=== PATIENT | female | born 1985 | race American Indian/Alaskan Native ===

== ENCOUNTER 2017-01-29 00:33 | Emergency (ER) | payer SELFPAY ==
--- NOTE | 2017-01-29 04:31 | Emergency Department Report ---
<YADIRA FARFAN - Last Filed: 01/29/17 05:45> ED General Adult HPI - General Chief complaint: Medical Clearance Stated complaint: DIZZINESS/CORBON MONOXIDE Time Seen by Provider: 01/29/17 04:17 Source: patient Mode of arrival: Ambulatory Limitations: No Limitations - History of Present Illness Initial comments: This is a 31-year-old female well-nourished with nontoxic or ill in appearance that presents with c/o of seeing spots for 10 mins after being in her car for an hour in the garage with the car on. Patient stated her power went out and she needed to charge her phone so she went into her garage and started her car with stayed inside the car for 1 hour. Patient stated she started to see spots in her vision for about 10 mins and ran out of the car outside. Patient stated the garage door has been closed during this incident. Patient currently denies any visional changes or seeing spots. Stated it has resolved right after she went outside. Patient stated she is here now to rule out carbon monoxide poisoning. Patient denies loss of consciousness,, chest pain,, abdominal pain, nausea, vomiting, fever, chills, headache, stiff neck, dizziness, altered mental status, or jaw pain. NKDA. Denies significant past medical history. MD Complaint: Possible carbon monoxide poisoning -: Last night (1030 pm) Radiation: non-radiation Severity scale (0 -10): 0 Improves with: none Worsens with: none Associated Symptoms: denies other symptoms. denies: confusion, chest pain, diaphoresis, fever/chills, headaches, loss of appetite, malaise, nausea/vomiting , rash, seizure, shortness of breath, syncope, weakness Treatments Prior to Arrival: none - Related Data Allergies Allergy/AdvReac Type Severity Reaction Status Date / Time No Known Allergies Allergy Unverified 01/29/17 01:32 ED Review of Systems ROS: Stated complaint: DIZZINESS/CORBON MONOXIDE Other details as noted in HPI Constitutional: denies: chills, fever Eyes: denies: eye pain, eye discharge, vision change ENT: denies: ear pain, throat pain Respiratory: denies: cough, shortness of breath, wheezing Cardiovascular: denies: chest pain, palpitations Endocrine: no symptoms reported Gastrointestinal: denies: abdominal pain, nausea, diarrhea Genitourinary: denies: urgency, dysuria, discharge Musculoskeletal: denies: back pain, joint swelling, arthralgia Skin: denies: rash, lesions Neurological: denies: headache, weakness, paresthesias Psychiatric: denies: anxiety, depression Hematological/Lymphatic: denies: easy bleeding, easy bruising ED Past Medical Hx - Past Medical History Previous Medical History?: No - Surgical History Additional Surgical History: - Social History Smoking Status: Never Smoker Substance Use Type: Alcohol ED Physical Exam - General Limitations: No Limitations General appearance: alert, in no apparent distress - Head Head exam: Present: atraumatic, normocephalic, normal inspection - Eye Eye exam: Present: normal appearance, PERRL, EOMI. Absent: scleral icterus, conjunctival injection, nystagmus, periorbital swelling, periorbital tenderness Pupils: Present: normal accommodation - ENT ENT exam: Present: normal exam, normal orophraynx, mucous membranes moist, TM's normal bilaterally, normal external ear exam - Neck Neck exam: Present: normal inspection, full ROM. Absent: tenderness, meningismus, lymphadenopathy, thyromegaly - Respiratory Respiratory exam: Present: normal lung sounds bilaterally. Absent: respiratory distress, wheezes, rales, rhonchi, stridor, chest wall tenderness, accessory muscle use, decreased breath sounds, prolonged expiratory - Cardiovascular Cardiovascular Exam: Present: regular rate, normal rhythm. Absent: systolic murmur, diastolic murmur, rubs, gallop - GI/Abdominal GI/Abdominal exam: Present: soft, normal bowel sounds. Absent: distended, tenderness, guarding, rebound, rigid, diminished bowel sounds - Rectal Rectal exam: Present: deferred - Extremities Exam Extremities exam: Present: normal inspection, full ROM, normal capillary refill. Absent: tenderness, pedal edema, joint swelling, calf tenderness - Back Exam Back exam: Present: normal inspection, full ROM. Absent: tenderness, CVA tenderness (R), CVA tenderness (L), muscle spasm, paraspinal tenderness, vertebral tenderness, rash noted - Neurological Exam Neurological exam: Present: alert, oriented X3, CN II-XII intact, normal gait, reflexes normal - Expanded Neurological Exam Expanded Patient oriented to: Present: person, place, time Speech: Present: fluid speech (normal speech) Cranial nerves: EOM's Intact: Normal, Gag Reflex: Normal, Tongue Deviation: Normal, Nystagmus: Normal, Facial Sensation: Normal, Facial Palsy with Forehead Movement: Normal, Facial Palsy without Forehead Movement: Normal Cerebellar function: Finger to Nose: Normal, Heel to Bates: Normal, Romberg: Normal Upper motor neuron: Tim Neglect: Normal, Pronator Drift: Normal, Babinski Sign : Normal, Sensory Extinction: Normal Sensory exam: Upper Extremity Light Touch: Normal, Upper Extremity Pin Prick: Normal, Upper Extremity Temperature: Normal, UE 2 Point Discrimination: Normal, Lower Extremity Light Touch: Normal, Lower Extremity Pin Prick: Normal, Lower Extremity Temperature: Normal, LE 2 Point Discrimination: Normal Motor strength exam: RUE: 5, LUE: 5, RLE: 5, LLE: 5 DTR: bicep (R): 2+, bicep (L): 2+, tricep (R): 2+, tricep (L): 2+, knee (R): 2+ , knee (L): 2+, ankle (R): 2+, ankle (L): 2+ Best Eye Response ([place]): (4) open spontaneously Best Motor Response (Shyla): (6) obeys commands Best Verbal Response ([place]): (5) oriented Shyla Total: 15 - Psychiatric Psychiatric exam: Present: normal affect, normal mood - Skin Skin exam: Present: warm, dry, intact, normal color. Absent: rash ED Course Vital Signs 01/29/17 01/29/17 01:29 06:22 Temperature 97.8 F 98.2 F Pulse Rate 88 74 Respiratory 16 14 Rate Blood Pressure 124/74 Blood Pressure 124/88 [Right] O2 Sat by Pulse 100 100 Oximetry - Reevaluation(s) Reevaluation #1: 01/29/17 04:38 Patient is very talkative and smiling. No signs of distress noted. - Consultations Consultation #1: 01/29/17 05:02 Dr. Byers has been notified and consulted about patient and labs findings. Agrees to d/c plan of care. ED Medical Decision Making - Lab Data Result diagrams: 01/29/17 04:48 01/29/17 04:56 - Medical Decision Making Ed course: This is a 31-year-old female that presents with concerns of carbon monoxide poisoning 1- after my physical exam, ABG, CBC, BMP< TRop, Cardiac CK, serum, and EKG has been obtained. ABG results: PH: 7.396 PCO2: 36.1 PO2: 100 Be: -3 HCO3: 22.1 S02: 98% Dr. Byers has been notified and consulted about patient and labs findings. Agrees to d/c plan of care. 2- due to pt not having any neurological deficits a CT scan of the head/brain has not been obtained. 3- at time time of discharge, the patient does not seem toxic or ill in appearance. No acute signs of distress noted. Patient agrees to discharge treatment plan of care. No further questions noted by the patient. 4- pt was instructed to f/u with her Primary care doctor in 3-5 days or if symptoms worsen return to the emergency department as soon as possible. 5- pt received O2 100% on a nonrebreather mask for 90 mins in the ED for possible carbon monoxide exposure. Critical care attestation.: If time is entered above; I have spent that time in minutes in the direct care of this critically ill patient, excluding procedure time. ED Disposition Disposition: DC-01 TO HOME OR SELFCARE Is pt being admited?: No Does the pt Need Aspirin: No Condition: Stable Instructions: Carbon Monoxide Exposure (ED) Additional Instructions: Follow-up with her primary care doctor in 3-5 days or if symptoms worsen return back to emergency room. Referrals: PRIMARY CAREMD [Primary Care Provider] - 3-5 Days [facility] [Outside] - 3-5 Days [facility] [Outside] - 3-5 Days OCTAVIO HILL JR, MD [Staff Physician] - 3-5 Days Forms: Work/School Release Form(ED) <MIRANDA BYERS - Last Filed: 02/01/17 02:07> ED Medical Decision Making - Lab Data Result diagrams: 01/29/17 04:48 01/29/17 04:56 - Medical Decision Making Lab results were not discussed with me. I was consulted about abg and informed instructed that a carboxyhemoglobin would need to be drawn and pt's smoking status will be needed to interpret the results. Carboxyhemoglobin was not drawn. Patient was treated with nonrebreather for 90 minutes which is appropriate treatment for carbon monoxide poisoning. Patient was discharged several days ago. I will order a call back to evaluate patient's status since it is too late to call at this time.
[2017-01-29 05:01] LABS: ISTAT Base Excess -3; ISTAT DEVICE 0; ISTAT HCO3 22.1; ISTAT PCO2 36.1 (35-45); ISTAT PH 7.396 (7.35-7.45); ISTAT PO2 100 (80-105); ISTAT SO2 98; ISTAT TCO2 23
[2017-01-29 05:07] LABS: Hematocrit 37.6 % (30.3-42.9); Hemoglobin 12.5 gm/dl (10.1-14.3); Mean Corpuscular HGB Conc 33 % (30-34); Mean Corpuscular Hemoglobin 27 pg (28-32); Mean Corpuscular Volume 83 fl (79-97); Platelet Count 289 K/mm3 (140-440); Red Blood Count 4.55 M/mm3 (3.65-5.03); Red Cell Distribution Width 13.7 % (13.2-15.2); White Blood Count 7.3 K/mm3 (4.5-11.0)
[2017-01-29 05:36] LABS: Anion Gap 18 mmol/L; BUN/Creatinine Ratio 16.66; Blood Urea Nitrogen 10 mg/dL (7-17); Calcium 9.2 mg/dL (8.4-10.2); Carbon Dioxide 23 mmol/L (22-30); Chloride 102.4 mmol/L (98-107); Creatine Kinase 58 units/L (30-135); Creatine Kinase MB < 1.0 ng/mL (0.0-4.0); Glucose 101 mg/dL (65-100); Potassium 4.4 mmol/L (3.6-5.0); Sodium 139 mmol/L (137-145)
[2017-01-29 06:01] LABS: Basophils % (Manual) 0 % (0.0-1.8); Blastocytes % (Manual) 0 %
[2017-01-29 06:03] LABS: Anisocytosis 1+; Diff Status Complete; Platelet Estimate Consistent w Auto
[2017-01-29 06:23] VITALS: BP 124/88
== END 2017-01-29 05:30 | disposition home or self-care (01) ==
LOC: ED 00:33
DX: T58.8X1A Toxic effect of carbon monoxide from other source, accidental (unintentional), initial encounter (principal); Z98.890 Other specified postprocedural states; Y93.89 Activity, other specified; Y99.8 Other external cause status; Y92.59 Other trade areas as the place of occurrence of the external cause
CPT/HCPCS: 36415; 80048; 82550; 82553; 82803; 84484; 84703; 85007; 85025; 93005; 93010; 99284